=== PATIENT | female | born 1970 | race Caucasian/White ===

== ENCOUNTER 2017-04-07 11:38 | Inpatient (IN) | payer OTHER ==
[~2017-04-07] VITALS: Ht 172.7 cm; Wt 48.3 kg
[2017-04-07 11:52] VITALS: BP 145/86
[2017-04-07] MEDS ORDERED: VENLAFAXINE HYD75 M3 PO (11:53)
[2017-04-07] MEDS ORDERED: MIRTAZAPINE30 M2 PO (11:53)
[2017-04-07] MEDS ORDERED: GABAPENTIN100 M2 PO (11:53)
[2017-04-07] MEDS ORDERED: BUPROPION HCL150 M1 PO (11:54)
[2017-04-07 12:16] LABS: BASO # 0.1 10*3/uL (0.0-0.1); BASO % 0.4 % (0.0-1.0); HEMATOCRIT 37.2 % (37.0-47.0); HEMOGLOBIN 12.2 g/dl (12.0-16.0); IG # 0.1 10*3/uL (0.0-0.1); LYMPH # 1.7 10*3/uL (1.3-4.4); LYMPH % 13.8 % (27.0-41.0); MEAN CELL VOLUME 96.1 fl (81.0-99.0); MEAN CORPUSCULAR HGB 31.5 pg (27.0-31.0); MEAN CORPUSCULAR HGB CONC 32.8 g/dl (33.0-37.0); MEAN PLATELET VOLUME 9.6 fl (9.6-12.3); MONO # 0.5 10*3/uL (0.1-1.0); MONO % 4.1 % (3.0-9.0); NEUT # 9.8 10*3/uL (2.3-7.9); NEUT % 80.8 % (47.0-73.0); PLATELET COUNT AUTOMATED 276 10*3/uL (130-400); RED BLOOD COUNT 3.87 10*6/uL (4.10-5.10); RED CELL DISTRI WIDTH 13.3 % (0-14.5); WHITE BLOOD COUNT 12.1 10*3/uL (4.8-10.8)
[2017-04-07 12:19] LABS: BILIRUBIN NEGATIVE (NEGATIVE); BLOOD NEGATIVE (NEGATIVE); CLARITY CLEAR (CLEAR); COLOR YELLOW (YELLOW); GLUCOSE NEGATIVE (NEGATIVE); KETONE NEGATIVE (NEGATIVE); LEUKO ESTERASE 1+ (NEGATIVE); NITRITE NEGATIVE (NEGATIVE); PROTEIN NEGATIVE (NEGATIVE); SPECIFIC GRAVITY <= 1.005 (1.005-1.030); UROBILINOGEN 0.2 E.U./dl (0.2-1.0)
[2017-04-07 12:26] LABS: BACTERIA 1+; URINE REFLEX COMMENT YES (NO)
[2017-04-07 12:30] LABS: PROTHROMBIN TIME 11.1 SECONDS (9.0-12.4)
[2017-04-07 12:36] LABS: ALKALINE PHOSPHATASE 200 U/L (45-117); BILIRUBIN, TOTAL 0.5 mg/dl (0.2-1.0); BUN 7 mg/dl (7-24); CARBON DIOXIDE 28 mmol/L (21-32); CHLORIDE 104 mmol/L (98-107); CKMB 4.7 ng/ml (0.5-3.6); CPK 466 U/L (26-192); EST GLOM FILT AFRICAN AMERICAN > 60 ml/min; GLUCOSE 107 mg/dL (65-99); POTASSIUM 4.2 mmol/L (3.5-5.1); SGOT/AST 60 IU/L (3-35); SGPT/ALT 40 U/L (12-78); SODIUM 141 mmol/L (136-145); TOTAL PROTEIN 6.3 gm/dL (6.4-8.2)
[2017-04-07 12:38] LABS: C-REACTIVE PROTEIN < 0.29 MG/DL (0-0.3); TROPONIN I < 0.015 ng/ml (<0.045)
[2017-04-07 12:49] VITALS: BP 115/83
[2017-04-07 14:13] LABS: LA>2 REFLEX 2 HR DRAW NOW
[2017-04-07 14:55] LABS: LA>2 RFLX FOLLOW UP AT 2 HRS 2.3 mmol/L (0.4-2.0)
[2017-04-07 15:24] VITALS: BP 118/79
[2017-04-07 16:00] VITALS: BP 126/84
[2017-04-07] MEDS ORDERED: GRALISE300 M1 PO (16:05)
[2017-04-07] MEDS ORDERED: NEURONTIN300 MG PO (16:06)
[2017-04-07 16:39] LABS: LA>2 REFLEX 4 HR DRAW NOW
[2017-04-07 20:00] VITALS: BP 133/78
[2017-04-08] VITALS: BP 128/77
[2017-04-08 06:11] LABS: BASO # 0.1 10*3/uL (0.0-0.1); EOS % 0.3 % (1.0-4.0); HEMOGLOBIN 11.3 g/dl (12.0-16.0); LYMPH # 2.2 10*3/uL (1.3-4.4); MEAN CELL VOLUME 98.3 fl (81.0-99.0); MEAN CORPUSCULAR HGB 31.7 pg (27.0-31.0); MEAN CORPUSCULAR HGB CONC 32.3 g/dl (33.0-37.0); MEAN PLATELET VOLUME 9.5 fl (9.6-12.3); MONO # 0.5 10*3/uL (0.1-1.0); MONO % 8.3 % (3.0-9.0); NEUT # 3.1 10*3/uL (2.3-7.9); NEUT % 53.2 % (47.0-73.0); PLATELET COUNT AUTOMATED 216 10*3/uL (130-400); RED BLOOD COUNT 3.56 10*6/uL (4.10-5.10); RED CELL DISTRI WIDTH 13.2 % (0-14.5); WHITE BLOOD COUNT 5.8 10*3/uL (4.8-10.8)
[2017-04-08 06:47] LABS: BUN 8 mg/dl (7-24); CARBON DIOXIDE 28 mmol/L (21-32); CHLORIDE 110 mmol/L (98-107); CHOLESTEROL 151 mg/dL (<200); EST GLOM FILT AFRICAN AMERICAN > 60 ml/min; FREE T4 0.79 ng/dl (0.76-1.46); GLUCOSE 69 mg/dL (65-99); POTASSIUM 3.7 mmol/L (3.5-5.1); SODIUM 143 mmol/L (136-145); TRIGLYCERIDES 85 mg/dl (<150); VLDL CHOLESTEROL 17 mg/dL (6-40)
[2017-04-08 06:53] LABS: HDL CHOLESTEROL 65 mg/dl (40-60); LDL CHOLESTEROL 69 mg/dL (9-159)
[2017-04-08 07:23] LABS: HEMOGLOBIN A1c 4.9 % (4.8-5.6)
[2017-04-08 08:00] VITALS: BP 132/87
[2017-04-08 12:00] VITALS: BP 134/87
[2017-04-08 16:00] VITALS: BP 131/68
[2017-04-08 19:57] VITALS: BP 140/78
[2017-04-09] VITALS: BP 125/68
[2017-04-09 08:00] VITALS: BP 120/78
[2017-04-09] MEDS ORDERED: D-1000 185 MG-11 TAB PO (11:08)
[2017-04-09] MEDS ORDERED: CYCLOBENZAPRINE10 MG PO (11:13)
[2017-04-09 12:00] VITALS: BP 127/66
== END 2017-04-09 15:00 | disposition home or self-care (01) | DRG 100 ==
LOC: ED 11:38 → EDHOLD 14:16 → 5E 14:16
PROVIDERS: Emergency Medicine; Internal Medicine
DX: G40.909 Epilepsy, unspecified, not intractable, without status epilepticus (principal); N17.0 Acute kidney failure with tubular necrosis; R65.11 Systemic inflammatory response syndrome (SIRS) of non-infectious origin with acute organ dysfunction; E87.2 Acidosis; E44.0 Moderate protein-calorie malnutrition; Z68.1 Body mass index [BMI] 19.9 or less, adult; S09.90XA Unspecified injury of head, initial encounter; W19.XXXA Unspecified fall, initial encounter; F17.210 Nicotine dependence, cigarettes, uncomplicated; R82.71 Bacteriuria; F32.9 Major depressive disorder, single episode, unspecified; E55.9 Vitamin D deficiency, unspecified; Z82.49 Family history of ischemic heart disease and other diseases of the circulatory system; Z82.61 Family history of arthritis; Z79.899 Other long term (current) drug therapy; Y93.89 Activity, other specified; Y92.89 Other specified places as the place of occurrence of the external cause; Y99.8 Other external cause status